=== PATIENT | male | born 1965 | race African-American/Black ===

== ENCOUNTER 2022-11-30 12:25 | Emergency (ER) | payer MEDICAID ==
[~2022-11-30] VITALS: Ht 182.9 cm; Wt 84.0 kg
[2022-11-30] MEDS ORDERED: FLUORESCEIN SODIUM 1MG/STRIP RIGHTEYE ONE (16:45)
[2022-11-30] MEDS ORDERED: FLUORESCEIN SODIUM 1MG/STRIP RIGHTEYE NR (16:45)
[2022-11-30] MEDS ORDERED: ACETAMINOPHEN 325MG TABLET PO ONE (16:45)
[2022-11-30] MEDS ORDERED: TETRACAINE 0.5% OPHTH DROPS 4ML RIGHTEYE ONE (16:45)
[2022-11-30] MEDS ORDERED: IBUPROFEN 400MG TABLET PO ONE (16:45)
[2022-11-30] MEDS ORDERED: TETRACAINE 0.5% OPHTH DROPS 4ML RIGHTEYE NR (16:45)
[2022-11-30] MEDS ORDERED: IBUPROFEN 400MG TABLET PO NR (16:45)
[2022-11-30] MEDS ORDERED: ACETAMINOPHEN 325MG TABLET PO NR (16:45)
[2022-11-30] MEDS ORDERED: OFLO5DRO3 RIGHTEYE (22:40)
[2022-11-30 22:54] VITALS: BP 120/87
== END 2022-11-30 22:56 | disposition home or self-care (01) ==
LOC: ER 12:25
DX: S05.01XA Injury of conjunctiva and corneal abrasion without foreign body, right eye, initial encounter (principal); V49.59XA Passenger injured in collision with other motor vehicles in traffic accident, initial encounter; W22.12XA Striking against or struck by front passenger side automobile airbag, initial encounter; I10 Essential (primary) hypertension; Y93.89 Activity, other specified; Y92.488 Other paved roadways as the place of occurrence of the external cause
CPT/HCPCS: 70480; 99284